=== PATIENT | female | born 1950 | race Caucasian/White ===

== ENCOUNTER 2018-04-06 20:24 | Observation (INO) | payer MEDICARE ==
[~2018-04-06] VITALS: Ht 170.2 cm; Wt 63.1 kg
--- NOTE | 2018-04-06 20:44 | NUR ---
PT HERE FROM FOR CHEST PAIN/PRESSURE FOR 3 DAYS. VSS. PT SAYS PRESSURE HAS IMPROVED TO 3/10. PT SAYS SHE ALSO HAS HAD INDIGESTION X 2 WEEKS. PT DENIES AND MED HX. . PIV PLACED BY [facility] [place]. PT HAS NO NEEDS AT THIS TIME. CALL LIGHT IN REACH.
[2018-04-06 21:19] LABS: BASOPHILS # (AUTO) 0.04 x10^3/uL (0-0.1); BASOPHILS % (AUTO) 1 % (0-1); EOSINOPHILS # (AUTO) 0.13 x10^3/uL (0-0.4); EOSINOPHILS % (AUTO) 2 % (1-7); LYMPHOCYTES # (AUTO) 1.73 x10^3/uL (1-3.4); LYMPHOCYTES % (AUTO) 23 % (22-44); MD NO; MEAN CORPUSCULAR HEMOGLOBIN 29.8 pg (27.0-34.8); MEAN CORPUSCULAR HGB CONC 33.3 g/dL (32.4-35.8); MEAN CORPUSCULAR VOLUME 89.6 fL (80-100); MEAN PLATELET VOLUME 8.1 fL (7.4-10.4); MONOCYTES # (AUTO) 0.44 x10^3/uL (0.2-0.8); MONOCYTES % (AUTO) 6 % (2-9); NEUTROPHILS # (AUTO) 5.08 x10^3/uL (1.8-6.8); NEUTROPHILS % (AUTO) 68 % (42-75); PLATELET COUNT 295 x10^3/uL (130-400); RED BLOOD COUNT 4.23 x10^6/uL (3.82-5.3); RED CELL DISTRIBUTION WIDTH 14.7 % (9.6-15.2)
[2018-04-06 21:30] LABS: ALBUMIN 3.7 g/dL (3.4-5.0); ANION GAP 6 mmol/L (5-15); CALCIUM 8.8 mg/dL (8.5-10.1); CHLORIDE 109 mmol/L (98-107)
[2018-04-06 21:34] LABS: TROPONIN I < 0.015 ng/mL (0.000-0.045)
[2018-04-06] MEDS ORDERED: MAALOX/HYOSCYAMINE/LIDOCAINE 45 ML BTL PO ONE (22:00)
[2018-04-06] MEDS ORDERED: MAALOX/HYOSCYAMINE/LIDOCAINE 45 ML BTL ONE (22:02)
--- NOTE | 2018-04-06 22:10 | NUR ---
pt medicated with gi cocktail. vss. pt to be admitted. call light in reach
--- NOTE | 2018-04-06 22:40 | NUR ---
ADMITTING PA AT BEDSIDE
[2018-04-06] MEDS ORDERED: POLYETHYLENE GLYCOL 17 GM PACKET PO PRN (23:00)
[2018-04-06] MEDS ORDERED: morphine SULFATE 10 MG/ML, 1ML IVPush PRN (23:00)
[2018-04-06] MEDS ORDERED: ACETAMINOPHEN 325 MG TABLET PO PRN (23:00)
[2018-04-06] MEDS ORDERED: NITROGLYCERIN 0.4 MG BOTTLE (25 TABS) SL PRN (23:00)
[2018-04-06] MEDS ORDERED: BISACODYL 10 MG SUPP PR PRN (23:00)
[2018-04-06] MEDS ORDERED: ONDANSETRON 2MG/ML, 2ML IVPush PRN (23:00)
[2018-04-06] MEDS: SODIUM CHLORIDE FLUSH 10ML SYR IVF SCH (23:41)
[2018-04-06 23:42] VITALS: BP 109/72
[2018-04-07 03:07] LABS: CHOLESTEROL, TOTAL 180 mg/dL (140-239); TRIGLYCERIDES 54 mg/dL (50-200); VLDL CHOLESTEROL 11 mg/dL (0-25)
[2018-04-07 03:10] LABS: CHOL/HDL RATIO 2.5; HDL CHOL % 41 % (28-40); HDL CHOLESTEROL (DIRECT) 73 mg/dL (40-60); LDL CHOLESTEROL,CALCULATED 96 mg/dL (54-169); LDL/HDL RATIO 1.3 (0.5-3.0); TROPONIN I < 0.015 ng/mL (0.000-0.045)
[2018-04-07 04:00] VITALS: BP 109/77
[2018-04-07] MEDS ORDERED: ASPIRIN 81 MG TABLET EC PO SCH (06:00)
[2018-04-07 06:44] VITALS: BP 133/87
[2018-04-07] MEDS: SODIUM CHLORIDE FLUSH 10ML SYR IVF SCH (07:58)
[2018-04-07] MEDS ORDERED: REGADENOSON 0.4 MG/5 ML SYRINGE ONE (07:59)
[2018-04-07] MEDS ORDERED: SENNA/DOCUSATE TABLET PO SCH (09:00)
[2018-04-07 10:17] LABS: TROPONIN I < 0.015 ng/mL (0.000-0.045)
[2018-04-07 13:22] VITALS: BP 126/72
== END 2018-04-07 17:17 | disposition home or self-care (01) ==
LOC: ED 21:50 → EDIP 21:55 → INTOOBSV 21:55 → ED 22:09 → 5SO 23:28 → DCLOUNGE 04-07 17:10
PROVIDERS: ADMIT Hospitalist; ATTEND Hospitalist
DX: R07.89 Other chest pain (principal); G43.909 Migraine, unspecified, not intractable, without status migrainosus; E78.5 Hyperlipidemia, unspecified; R11.2 Nausea with vomiting, unspecified; M54.9 Dorsalgia, unspecified; Z80.1 Family history of malignant neoplasm of trachea, bronchus and lung; Z82.5 Family history of asthma and other chronic lower respiratory diseases
CPT/HCPCS: 36415; 71045; 78452; 80048; 80061; 82040; 84484; 85025; 93005; 93017; 99285; A9502; C9898; G0378; J2785